=== PATIENT | male | born 1970 | race Caucasian/White ===

== ENCOUNTER 2022-06-19 12:57 | Outpatient (RCR) | payer OTHER, SELFPAY | END 2022-08-28 16:00 | disposition home or self-care (01) | LOC: HO.WCC 12:57 | PROVIDERS: Visit Provider Physician Assistant | DX: E11.621 Type 2 diabetes mellitus with foot ulcer (principal); L97.512 Non-pressure chronic ulcer of other part of right foot with fat layer exposed; E11.42 Type 2 diabetes mellitus with diabetic polyneuropathy; I25.10 Atherosclerotic heart disease of native coronary artery without angina pectoris; L60.2 Onychogryphosis; B35.9 Dermatophytosis, unspecified; L84 Corns and callosities; I10 Essential (primary) hypertension; Z79.2 Long term (current) use of antibiotics; Z95.1 Presence of aortocoronary bypass graft | CPT/HCPCS: 11042; 97597; 99212 ==